=== PATIENT | female | born 1980 | race Caucasian/White ===

== ENCOUNTER 2018-08-05 11:39 | Outpatient (REF) | payer BC, SELFPAY ==
--- NOTE | 2018-08-05 09:00 | PAPFT_PTH ---
PATIENT: Flor Mccarthy LOC: [facility] U#:[id number] AGE/SX: 38/F ROOM: RE08/05/[address]: ALLI Gibson : 1980 BED: DIS: 08/05/2018 SPEC #: [id number] RECD: 08/06/18 12:55 STATUS: JIMBO SOSA #: [id number] DIAN: 08/05/18 09:[address]: Payal Mendenhall DEPT: [facility] Cytology RECD BY: Jessi Shaw Tissues: 1 - CX/ENDOCX FOR PAP SMEARS Procedures: PAP THIN PREP/UVM Screening HPV DNA PROBE Comments: [id number]
== END 2018-08-05 11:59 ==
LOC: LBN 11:39
PROVIDERS: PCP Nurse Practitioner Family; Visit Provider Nurse Practitioner Family
DX: Z12.4 Encounter for screening for malignant neoplasm of cervix (principal); Z11.51 Encounter for screening for human papillomavirus (HPV)
CPT/HCPCS: 88142; 87624

== ENCOUNTER 2018-08-08 00:38 | Outpatient (CLI) | payer BC, SELFPAY ==
--- NOTE | 2018-08-08 09:45 | DI.MAMMO_ITS ---
SYMPTOMS/DIAGNOSIS: SCREENING, Z12.31 MAMMOGRAMS: Mammograms were interpreted according to the usual protocol including computer analysis with CAD system, tomosynthesis and C view imaging. The breasts are of moderate density with fairly symmetrical distribution of fibroglandular tissue. No dominant mass or clumped microcalcification is identified in either breast. Current examination is a baseline examination. CONCLUSION: No specific evidence of malignancy at this time. Routine screening examinations are suggested at yearly intervals in this age group according to the ACS/ACR guidelines. Category 1, breast density category B. MQSA ASSESSMENT OF FINDINGS: Negative. Category 1. Patient will receive a letter notifying them of these results. BI-RADS category B. There are scattered areas of fibroglandular density.
== END 2018-08-08 00:58 ==
PROVIDERS: PCP Nurse Practitioner Family; Visit Provider Nurse Practitioner Family
DX: Z12.31 Encounter for screening mammogram for malignant neoplasm of breast (principal)
CPT/HCPCS: 77063; 77067

== ENCOUNTER 2018-08-08 07:53 | Outpatient (CLI) | payer BC, SELFPAY ==
[2018-08-08 09:55] LABS: Absolute Basophil Count 0.02 k/cumm (0.0-0.2); Absolute Eosinophil Count 0.11 k/cumm (0.0-0.7); Absolute Lymphocyte Count 1.43 k/cumm (1.2-3.4); Absolute Monocyte Count 0.34 k/cumm (0.11-0.7); Absolute Neutrophil Count 2.64 k/cumm (1.2-6.7); Basophils % 0.4; Eosinophils % 2.4; HCT 37.6 % (36.0-46.0); HGB 12.2 g/dL (12.0-15.5); Lymphocytes % 31.5; Mean Corp. HGB Concentration 32.4 g/dL (32.0-36.0); Mean Corpuscular Hemoglobin 29.1 pg (27.0-33.0); Mean Corpuscular Volume 89.7 fL (80-95); Mean Platelet Volume 9.9 fL (8.0-11.0); Monocytes % 7.5; Neutrophils % 58.2; Platelet Count 294 x1000/uL (130-400); RBC 4.19 m/cumm (4.00-5.20); RBC Distribution Width 14.2 % (11.7-14.6); White Blood Cell Count 4.54 k/cumm (4.4-10.8)
[2018-08-08 11:38] LABS: Anion Gap 8.6 mmol/L (3-11); BUN 12 mg/dL (7-18); CO2 27.4 mmol/L (21.0-32.0); CREATININE 0.85 mg/dL (0.55-1.02); Chloride 101 mmol/L (98-107); Glucose 90 mg/dL (70-100); Potassium 4.1 mmol/L (3.5-5.1); Sodium 137 mmol/L (136-145); TSH 2.78 uIU/mL (0.358-3.74)
[2018-08-08 12:03] LABS: Cholesterol 219 mg/dL (50-200); HDL Cholesterol 66 mg/dL (40-60); LDL CHOLESTEROL 133 mg/dL (<100); Triglyceride 55 mg/dL (30-150)
[2018-08-09 11:19] LABS: Thyroglobulin Antibody 101 U/mL (<61); Thyroperoxidase Antibody 55 U/mL (<61)
== END 2018-08-08 08:13 ==
PROVIDERS: PCP Nurse Practitioner Family; Visit Provider Nurse Practitioner Family
DX: E03.9 Hypothyroidism, unspecified (principal)
CPT/HCPCS: 36415; 80048; 80061; 83721; 86376; 84439; 84443; 85025

== ENCOUNTER 2019-06-12 08:31 | Emergency (ER) | payer BC, SELFPAY ==
[2019-06-12 08:35] VITALS: BP 114/75; PULSE 60; RESP 16; TEMP 36.8; O2SAT 100
--- NOTE | 2019-06-12 08:44 | W.ED.GENAD ---
Discharge Plan Disposition Patient Disposition: HOME Condition: Stable Discharge Details Chief Complaint: EyeProblem Clinical Impression: Hordeolum eyelid Primary Care Provider: Payal Mendenhall ED Provider: Jillian Rea Home Meds and New Rx's Prescriptions: New polymyxin B sulf-trimethoprim 10,000 unit- 1 mg/mL drops 1 drp OP Q3H 7 Days Qty: 10 RF: 0 Continued levothyroxine 75 mcg tablet 75 mcg PO DAILY Qty: 90 RF: 4 Discharge Instructions Instructions: Stye (ED) Additional Instructions: Follow up with primary care provider in 3-5 days. Return to ED sooner if any worsening or concerns. Increase oral fluids. Apply warm compresses. Please take Tylenol or Ibuprofen with food every 4-6 hours as needed for pain and swelling. Take medications as directed Follow-up in 3 to 5 days [facility] [address] [address] Medical Decision Making 39-year-old female presents with right eyelid problem. She reports 4 days ago noticed a red tender area to her right lower lid. Denies trauma. No periorbital swelling noted. She does have some erythema noted to that her outer right lower eyelid. On the inner eyelid there is a little white lesion approximately 1 mm in diameter. Some mild discharge. Patient reports waking up with her eyelid crusted shut. And some mild discharge noted. Her conjunctive and sclera are clear pupils are PERRLA EOMs are intact bilaterally. No face pain or ear pain noted. At this time it is important hordeolum versus chalazion. Prescription written for polymyxin trimethoprim eyedrops. Instructed to do 1 drop 4 times a day x7 days while awake. Instructed to follow-up with [facility] in 3 to 5 days if symptoms persist. Instructed to apply warm compresses and to return if any worsening, problems seen, fever or concerns. Patient verbalized understanding. HPI General Mode of arrival: ambulatory. Date/Time Provider Initiated Documentation: 06/12/19 08:39. Limitations to Documentation: no limitations. Information obtained by: patient. HPI Narrative: 39-year-old female presents with right eyelid complaint. She states that 4 days ago she began with a right lower lid stye which was tender. And she noted a white pustule noted to the inner lid. She does report some drainage and crusting. Denies new eye make-up or trauma to the eye. No visual disturbances. Pupils are PERRLA. Conjunctive is clear. Visual acuity is 20/20. Related Data Home Medications Medication Instructions Recorded Confirmed levothyroxine 75 mcg tablet 75 mcg PO DAILY #90 tab-cap 08/05/18 06/12/19 polymyxin B sulf-trimethoprim 1 drp OP Q3H 7 Days #10 ml 06/12/19 Previous Rx's Medication Instructions Recorded levothyroxine 75 mcg tablet 75 mcg PO DAILY #90 tab-cap 08/05/18 polymyxin B sulf-trimethoprim 1 drp OP Q3H 7 Days #10 ml 06/12/19 Allergies Allergy/AdvReac Type Severity Reaction Status Date / Time No Known Allergies Allergy Unverified 06/12/19 08:39 General Stated Complaint: EyeProblem KYRIE: 5 Review of Systems Narrative: Constitutional: Negative for weight loss, alert and oriented, well groomed, normal body habitus, appears comfortable. HEENT: Denies trauma, headaches, blurry vision, nasal discharge, sore throat, trouble swallowing. Chest: Denies chest pain, palpitations, irregular rhythm, hypertension. Respiratory: Denies Shortness of breath, cough, hemoptysis. GI: Denies abdominal pain, nausea, vomiting, diarrhea, constipation. : Denies dysuria, hematuria, flank pain, rectal bleeding. Neuro: Denies dizziness, blurry vision, weakness, syncope, headache or facial numbness. Hematologic: Denies easy bruising, intolerance to heat or cold, hair loss. Eyes Eyes: Reports eye pain (Right lower eyelid lesion to inner eyelid white) and Reports other (Erythema localized to right outer lower lid) [facility] Medical History Hyperlipidemia (Chronic ~07/2018) Hypothyroidism (Chronic 05/10/11) TMJ (temporomandibular joint syndrome) (Inactive) Followed by Dr. Borrego with [facility] Surgical History Tooth extraction wisdom teeth removal Family History Mother , at 64 of glioblastoma Essential hypertension Glioblastoma Hyperlipidemia Father Hyperlipidemia Brother No problems noted. Brother No problems noted. Son No problems noted. Daughter No problems noted. Daughter No problems noted. Maternal Grandfather , in his 80s Throat cancer Maternal Grandmother , in her 80s Stroke Hyperlipidemia Paternal Grandfather , In his 80s Skin cancer Paternal Grandmother , in her 80s No problems noted. Brother , 34/plane crash No problems noted. Social History Smoking/Tobacco Use Status: Never Alcohol Intake: current Alcohol Intake frequency: 0-2 drinks per day Alcohol type: beer, wine and hard liquor Drug use: Never Substance use type: does not use Caregiver/Support person: No Household members: spouse and children Housing: house Communication Needs: None Do you need help understanding health information?: Never Pets and animals: Yes Pets and animals: other Details: chickens Sexually active: Yes Do you think of yourself as: straight/heterosexual Current gender identity: female What is your relationship status?: How often do you talk on the phone with friends or family?: three or more times per week How often do you get together with friends or relatives?: three or more times per week How often do you attend oriental orthodox or islam services?: 1-3 times per year Do you belong to any clubs or organized social groups?: no Panel score (0-1 are the most socially isolated patients): 2 What type of physical activity do you participate in: walking and other Details: Skiing, elliptical, Duration: 45-60 minutes/day Frequency: 5-6 times per week Kelly/Rastafarian: None Special kelly needs: No Seatbelt use: always Drive intox or ride w/intox motor pool driver: No Do you feel safe at home: Yes Do you feel safe in your relationship?: Yes Female Reproductive History Menstrual control method: other ( had vasectomy) History History 3 Para Hx # Term Pregnancies Multiple births 1 Hx # Pregnancies Ectopic pregnancies AB induced Hx Number of Living Children 3 AB spontaneous 1 Exam Eyes Alignment and Position: alignment normal Eyelids: eyelid abnormality right lower eyelid inflamed cyst internal lid (Chalazion vs hordeolum), erythema and tenderness Conjunctivae: conjunctivae normal Sclera: sclerae normal Cornea: corneas normal Pupils: PERRL EOM: EOM intact bilaterally Direct ophthalmoscopy: normal light reflex Eyes/upper lids images: 1. Erythema 2. White rubbery lesion Course Vital Signs Vital signs: Vital Signs Temperature 36.8 C 06/12/19 08:35 Pulse 60 06/12/19 08:35 Respiratory Rate 16 06/12/19 08:35 Blood Pressure 114/75 06/12/19 08:35 Pulse Oximetry 100 06/12/19 08:35 Temperature 36.8 C 06/12/19 08:35 Temperature Source Temporal Artery Scan 06/12/19 08:35 Pulse 60 06/12/19 08:35 Respiratory Rate 16 06/12/19 08:35 Respiratory Effort Non-Labored 06/12/19 08:38 Blood Pressure 114/75 06/12/19 08:35 Blood Pressure Position Sitting 06/12/19 08:35 Pulse Oximetry 100 06/12/19 08:35 Oxygen Delivery Method Room Air 06/12/19 08:35 Oxygen Flow Rate 0 06/12/19 08:35 Pain Level 5 06/12/19 08:35
== END 2019-06-12 08:56 | disposition home or self-care (01) ==
PROVIDERS: Emergency Provider Registered Nurse Emergency; PCP Nurse Practitioner Family
DX: H00.012 Hordeolum externum right lower eyelid (principal)
CPT/HCPCS: 99283

== ENCOUNTER 2019-10-28 02:46 | Outpatient (CLI) | payer BC, SELFPAY ==
[2019-10-28 11:53] LABS: Anion Gap 6.9 mmol/L (3-11); BUN 16 mg/dL (7-18); CO2 27.1 mmol/L (21.0-32.0); CREATININE 0.96 mg/dL (0.55-1.02); Calcium 9.3 mg/dL (8.5-10.1); Chloride 101 mmol/L (98-107); FREE T4 1.02 ng/dL (0.76-1.46); Glucose 112 mg/dL (74-106); Potassium 4.4 mmol/L (3.5-5.1); Sodium 135 mmol/L (136-145)
== END 2019-10-28 03:06 ==
PROVIDERS: PCP Nurse Practitioner Family; Visit Provider Nurse Practitioner Family
DX: E03.9 Hypothyroidism, unspecified (principal)
CPT/HCPCS: 36415; 80048; 84439; 84443

== ENCOUNTER 2019-11-10 17:59 | Emergency (ER) | payer BC, SELFPAY ==
[2019-11-10 18:07] VITALS: BP 124/78; PULSE 69; RESP 18; TEMP 36.6; O2SAT 100
--- NOTE | 2019-11-10 18:15 | RT.EKG_ITS ---
APPROVED REPORT Exam: Resting ECG Patient Location: E HR:62 bpm ECG Measurements Heart Rate 62 AXIS NJ 151 P 40 QRSd 96 QRS 53 QT 403 T 52 QTc 410 <Conclusion> Sinus rhythm...normal P axis, V-rate 60- [address] elevation or depression.
--- NOTE | 2019-11-10 18:22 | W.ED.GENAD ---
Discharge Plan Disposition Patient Disposition: HOME Condition: Stable Discharge Details Chief Complaint: RespSymp Clinical Impression: Altered breathing pattern Primary Care Provider: Payal Mendenhall ED Provider: Alexa Hayes Home Meds and New Rx's Prescriptions: Continued levothyroxine 75 mcg tablet 75 mcg PO DAILY Qty: 90 RF: 4 Discharge Instructions Instructions: Dyspnea (ED), Breathing Techniques (ED) Additional Instructions: Drink plenty of fluids and get plenty of rest. Alternate tylenol and motrin as needed and directed for pain. Follow-up with your primary care doctor in 1 week for reevaluation and for possible outpatient MRI of your abdomen for further evaluation of the liver lesions noted incidentally on your CT. Return to the emergency department with any worsening or new concerning symptoms. Discharge Data Discharge Date/Time-TO BE ENTERED AT DEPARTURE: 11/10/19 20:50 Discharge Physician: Alexa Hayes Medical Decision Making <Alexa Hayes DO - Last Filed: 11/12/19 10:26> 1800 -- 39-year-old female with a history of hypothyroidism and hyperlipidemia presents with sensation of difficulty taking a deep breath for the past week. Had a brief period of right-sided chest pain and dizziness last week but this has since resolved. EKG notes a rate of 62, sinus with no acute ST ischemic changes. Patient is minimal tenderness to palpation of her right anterior chest. Differential diagnosis includes costochondritis, chest wall strain, PE, pneumonia, anxiety, etc. Will place an IV, bolus IV fluids, screening labs, CT chest to rule out PE. Urine test negative. 1999 --labs and imaging reviewed. Potassium 3.2. Troponin negative. CT chest notes liver lesions but no evidence of PE. Results discussed with patient. She was unaware of these noted liver lesions. She was advised to follow-up with her primary care doctor for reevaluation and for outpatient MRI abdomen for further evaluation. Patient feels good to go home. Usual and customary return precautions given prior to discharge.. Medical Records Medical records reviewed: Yes I reviewed the patient's medical records. Imaging Data Radiologic Study: Radiologist's impression: CT Angiography Chest With Contrast Exam date and time: 11/10/2019 7:00 PM Age: 39 years old Clinical indication: Shortness of breath; Patient HX: Difficulty taking a deep breath TECHNIQUE: Imaging protocol: Computed tomographic angiography of the chest with intravenous contrast. 3D rendering: MIP and/or 3D reconstructed images were created by the technologist. Radiation optimization: All CT scans at this facility use at least one of these dose optimization techniques: automated exposure control; mA and/or kV adjustment per patient size (includes targeted exams where dose is matched to clinical indication); or iterative reconstruction. Contrast material: OMNIPAQUE 350; Contrast volume: 100 ml; Contrast route: INTRAVENOUS (IV); COMPARISON: No relevant prior studies available. FINDINGS: Pulmonary arteries: Normal. No pulmonary emboli. Aorta: Unremarkable. No aortic aneurysm. No aortic dissection. Lungs: See Liver finding. Pleural space: Unremarkable. No pneumothorax. No pleural effusion. Heart: Unremarkable. No cardiomegaly. No pericardial effusion. Lymph nodes: Unremarkable. No enlarged lymph nodes. Liver: Left hepatic lobe lesion measures 5.5 cm of unclear etiology. Right hepatic lobe lesion measures 4 cm, etiology unclear. Similar lesion in the inferior right hepatic lob. e measures 5.1 cm. 4 mm nodule in the posterior segment of the left lower lobe (5/46). Consider contrast-enhanced dedicated MRI to the liver for further evaluation. Bones/joints: Unremarkable. No acute fracture. Soft tissues: Unremarkable. IMPRESSION: 1. No pulmonary embolism. 2. Right hepatic lobe lesion measures 4 cm, etiology unclear. Similar lesion in the inferior right hepatic lob. e measures 5.1 cm. 4 mm nodule in the posterior segment of the left lower lobe (5/46). Consider contrast-enhanced dedicated MRI to the liver for further evaluation. 3. Pulmonary nodule. For patients at low risk (minimal or absent history of smoking and of other known risk factors), no routine follow-up is indicated. Lab Data Lab results reviewed: Yes I reviewed the patient's lab results. Labs: Laboratory Tests Range/Units 11/10/19 11/10/19 11/10/19 19:20 19:20 19:20 WBC (4.4-10.8) k/cumm 6.07 RBC (4.00-5.20) m/cumm 4.26 Hgb (12.0-15.5) g/dL 12.9 Hct (36.0-46.0) % 38.3 MCV (80-95) fL 89.9 MCH (27.0-33.0) pg 30.3 MCHC (32.0-36.0) g/dL 33.7 RDW (11.7-14.6) % 14.0 Plt Count (130-400) x1000/uL 321 MPV (8.0-11.0) fL 10.0 Immature Gran % % 0.2 Neutrophils % 57.7 Lymphocytes % 31.1 Monocytes % 7.6 Eosinophils % 3.1 Basophils % 0.3 Absolute Neutrophils (1.2-6.7) k/cumm 3.50 Absolute Lymphocytes (1.2-3.4) k/cumm 1.89 Absolute Monocytes (0.11-0.7) k/cumm 0.46 Absolute Eosinophils (0.0-0.7) k/cumm 0.19 Absolute Basophils (0.0-0.2) k/cumm 0.02 PT (9.3-11.0) sec 10.3 INR (0.9-1.1) 1.0 APTT (21.0-31.4) sec 25.2 Sodium (136-145) mmol/L 138 Potassium (3.5-5.1) mmol/L 3.2 L Chloride (98-107) mmol/L 102 Carbon Dioxide (21.0-32.0) mmol/L 24.2 Anion Gap (3-11) mmol/L 11.8 H BUN (7-18) mg/dL 17 Creatinine (0.55-1.02) mg/dL 0.89 Estimated GFR/1.73 m2 (mL/min/1.73m2) >= 60.00 Glucose (74-106) mg/dL 77 Calcium (8.5-10.1) mg/dL 9.6 Magnesium (1.8-2.4) mg/dL 1.9 Total Bilirubin (0.2-1.0) mg/dL 0.7 AST (15-37) U/L 22 ALT (14-59) U/L 20 Alkaline Phosphatase (46-116) U/L 48 Troponin I (<0.06) ng/mL < 0.05 Total Protein (6.4-8.2) g/dL 8.1 Albumin (3.4-5.0) g/dL 4.1 ECG Data Attestation: I personally reviewed and interpreted this ECG (s) as follows: Interpretation: Rate of 62, sinus, no acute ST elevation or depression. AL 151. QRS 96. QTc 410. <Joel Medley, - Last Filed: 11/11/19 20:15> I did not participate in this patient's care, but secondary to signing error was placed on the chart. Please refer to Dr. Hayes's documentation. HPI <Alexa Hayes DO - Last Filed: 11/12/19 10:26> General Mode of arrival: ambulatory. Date/Time Provider Initiated Documentation: 11/10/19 18:02. Limitations to Documentation: no limitations. Information obtained by: patient. HPI Narrative: Patient is a 39-year-old female with a history of hypothyroidism, hyperlipidemia who presents for difficulty taking a deep breath for the past week. Patient states she was stung by 2 bees 1 week ago and ran away from them and since then she felt that she was having difficulty taking a deep breath. She denies any sensation of throat swelling or itching. She states the bee stings were minimal to her left pinky and neck and did not develop any rash, lesions, redness or swelling in the areas. She states last week she felt that she had pain when taking a deep breath but states this is since resolved. She states a few days ago she felt dizziness but not at present. She denies any fever, cough, nausea, vomiting or dizziness. Denies any recent travel, recent surgery, leg pain or swelling, oral contraceptives or known injury. Related Data Home Medications Medication Instructions Recorded Confirmed levothyroxine 75 mcg tablet 75 mcg PO DAILY #90 tab-cap 10/30/19 11/10/19 Previous Rx's Medication Instructions Recorded levothyroxine 75 mcg tablet 75 mcg PO DAILY #90 tab-cap 10/30/19 Allergies Allergy/AdvReac Type Severity Reaction Status Date / Time No Known Allergies Allergy Unverified 11/10/19 18:12 General Stated Complaint: RespSymp KYRIE: 3 Review of Systems <Alexa Hayes DO - Last Filed: 11/12/19 10:26> All systems reviewed & are unremarkable except as noted in HPI and below Constitutional Constitutional: Reports as per HPI, Denies chills and Denies fever(s) Eyes Eyes: Denies blurry vision ENT Ears, Nose, Mouth, and Throat: Denies dizziness, Denies sore throat and Denies throat swelling Cardiovascular Cardiovascular: Denies chest pain and Reports dyspnea Respiratory Respiratory: Denies cough and Reports dyspnea Gastrointestinal Gastrointestinal: Denies abdominal pain, Denies diarrhea and Denies vomiting Genitourinary Genitourinary: Denies hematuria and Denies dysuria Musculoskeletal Musculoskeletal: Denies back pain and Denies numbness Integumentary/Breasts Skin/Breast: Denies lesions and Denies rash Neurologic Neurologic: Denies dizziness, Denies localized weakness and Denies numbness Allergic/Immunologic Allergic/Immunologic: Denies throat swelling PFSH <Alexa Hayes DO - Last Filed: 11/12/19 10:26> Medical History (Updated 11/10/19 @ 20:24 by Alexa Hayes DO) Hyperlipidemia (Chronic) Hypothyroidism (Chronic) Insomnia (Chronic) TMJ (temporomandibular joint syndrome) (Inactive) Followed by Dr. Borrego with [facility] Surgical History (Updated 08/21/19 @ 09:15 by Payal Mendenhall NP) History of varicose vein stripping (Acute ~2004) Left leg in [place] Social History Smoking/Tobacco Use Status: Never Alcohol Intake: current Alcohol Intake frequency: 0-2 drinks per day Alcohol type: beer, wine and hard liquor Drug use: Never Substance use type: does not use Caregiver/Support person: No Household members: spouse and children Housing: house Communication Needs: None Do you need help understanding health information?: Never Pets and animals: Yes Pets and animals: other Details: chickens Sexually active: Yes Do you think of yourself as: straight/heterosexual Current gender identity: female What is your relationship status?: How often do you talk on the phone with friends or family?: three or more times per week How often do you get together with friends or relatives?: three or more times per week How often do you attend mormonism or nondenominational services?: 1-3 times per year Do you belong to any clubs or organized social groups?: no Panel score (0-1 are the most socially isolated patients): 2 What type of physical activity do you participate in: walking and other Details: Skiing, elliptical, Duration: 45-60 minutes/day Frequency: 5-6 times per week Kelly/Zoroastrianism: None Special kelly needs: No Seatbelt use: always Drive intox or ride w/intox seasonal delivery driver: No Do you feel safe at home: Yes Do you feel safe in your relationship?: Yes Female Reproductive History Menstrual control method: other ( had vasectomy) History History 3 Para Hx # Term Pregnancies Multiple births 1 Hx # Pregnancies Ectopic pregnancies AB induced Hx Number of Living Children 3 AB spontaneous 1 Exam <Alexa Hayes DO - Last Filed: 11/12/19 10:26> Const General: cooperative, healthy appearing and no acute distress HENMT Head: normal to inspection Face and sinus: normal facial exam Eyes General: appearance normal, both eyes and all related structures Pupils: PERRL EOM: EOM intact bilaterally Neck Neck: normal visual inspection and No submandibular swelling Lymphatic: no lymphadenopathy noted Chest Chest: normal inspection of the chest and tenderness Chest/axillae images: 1. Minimal tenderness to palpation right anterior chest Resp Effort & Inspection: normal respiratory effort and able to speak in complete sentences Auscultation: clear to auscultation bilaterally Cardio Rate: regular rate Rhythm: regular rhythm GI Inspection: normal to inspection Palpation: soft, not firm, not rigid and nontender Auscultation: normal bowel sounds Skin General skin exam: no rashes or lesions noted Neuro General: patient alert, patient awake and patient oriented x3 Cognition: normal cognition Speech: speech normal Motor: muscle tone normal throughout Sensory Exam: no sensory deficits noted Extrem General: normal to inspection, full ROM, capillary refill normal, no calf tenderness bilaterally and no edema Psych Appearance: grossly normal Mental Status: mental status grossly normal Speech and Movement: speech and movement normal Affect: normal affect Course <Alexa Hayes DO - Last Filed: 11/12/19 10:26> Vital Signs Vital signs: Vital Signs Temperature 97.9 F 11/10/19 18:07 Pulse 69 11/10/19 18:07 Respiratory Rate 18 11/10/19 18:07 Blood Pressure 124/78 11/10/19 18:07 Pulse Oximetry 100 11/10/19 18:07 Temperature 97.9 F 11/10/19 18:07 Pulse 69 11/10/19 18:07 Respiratory Rate 18 11/10/19 18:07 Respiratory Effort 11/10/19 18:12 Blood Pressure 124/78 11/10/19 18:07 Blood Pressure Position Sitting 11/10/19 18:07 Pulse Oximetry 100 11/10/19 18:07 Oxygen Delivery Method Room Air 11/10/19 18:07 Oxygen Flow Rate 0 11/10/19 18:07 Pain Level 4 11/10/19 18:07
--- NOTE | 2019-11-10 18:45 | DI.CT_ITS ---
EXAM: CT CHEST PE CTA CLINICAL HISTORY: Difficulty taking deep breath, r/o PE. TECHNIQUE: Imaging Protocol: Axial CT angiography was performed with multi-slice acquisition and mu lti-planar and/or 3D reconstructions. CONTRAST MATERIAL: Intravenous: Omnipaque 350 Contrast volume:structured data in ml COMPARISON: No exams were available for comparison FINDINGS: CT angiography of the chest was performed with intravenous infusion of 100 cc of Omnipaque 350. The lungs are clear. No pleural effusion. Tracheobronchial tree appears intact. No evidence of pulmonary embolic disease. Thoracic aorta is of normal, no thoracic aortic aneurysm or dissection, major branch vessels appear intact. No mediastinal or hilar adenopathy. Images obtained through the upper abdomen show at least 3 hepatic lesions which are of intermediate a ttenuation, the largest in the left lobe measuring up to 5-6 cm in diameter. Multiphasic hepatic CT recommended for further evaluation to distinguish neoplastic from benign causes. IMPRESSION: No evidence of pulmonary embolic disease. Multiple hepatic masses, no prior studies available for comparison. Comparison with prior outside st udies should be attempted, if no prior studies are available multiphasic hepatic CT would be recommen ded to evaluate malignant versus benign causes. RADIATION DOSE DELIVERED: Total DLP DATA REPOSITORY: All CT scans at this facility are submitted to the National Radiology Data Registry (NRDR) Dose Index Registry (DIR) with the [employer] (ACR). RADIATION OPTIMIZATION: All CT scans at this facility use at least one of these dose optimization te chniques: automated exposure control; mA and/or kV adjustment per patient size (includes targeted exa ms where dose is matched to clinical indication); or iterative reconstruction.
[2019-11-10] MEDS: Normal Saline 1,000 ML 1000 ML IV (19:20)
[2019-11-10 19:29] LABS: Abs Immature Grans 0.01 k/cumm (0.0-0.09); Absolute Basophil Count 0.02 k/cumm (0.0-0.2); Absolute Eosinophil Count 0.19 k/cumm (0.0-0.7); Absolute Lymphocyte Count 1.89 k/cumm (1.2-3.4); Absolute Monocyte Count 0.46 k/cumm (0.11-0.7); Basophils % 0.3; Eosinophils % 3.1; HCT 38.3 % (36.0-46.0); HGB 12.9 g/dL (12.0-15.5); Immature Grans % 0.2 %; Lymphocytes % 31.1; Mean Corp. HGB Concentration 33.7 g/dL (32.0-36.0); Mean Corpuscular Hemoglobin 30.3 pg (27.0-33.0); Mean Corpuscular Volume 89.9 fL (80-95); Monocytes % 7.6; Neutrophils % 57.7; Platelet Count 321 x1000/uL (130-400); RBC 4.26 m/cumm (4.00-5.20); White Blood Cell Count 6.07 k/cumm (4.4-10.8)
[2019-11-10] MEDS: Omnipaque 350 MG/ML 100 ML BTL IJ (19:36)
[2019-11-10 19:40] LABS: PTT Activated 25.2 sec (21.0-31.4); Prothrombin Time 10.3 sec (9.3-11.0)
[2019-11-10 19:43] LABS: ALT 20 U/L (14-59); AST 22 U/L (15-37); Albumin 4.1 g/dL (3.4-5.0); Alkaline Phosphatase 48 U/L (46-116); Anion Gap 11.8 mmol/L (3-11); BUN 17 mg/dL (7-18); Bilirubin, Total 0.7 mg/dL (0.2-1.0); CO2 24.2 mmol/L (21.0-32.0); CREATININE 0.89 mg/dL (0.55-1.02); Calcium 9.6 mg/dL (8.5-10.1); Chloride 102 mmol/L (98-107); Glucose 77 mg/dL (74-106); Magnesium 1.9 mg/dL (1.8-2.4); Potassium 3.2 mmol/L (3.5-5.1); Sodium 138 mmol/L (136-145); Total Protein 8.1 g/dL (6.4-8.2)
[2019-11-10 19:44] LABS: Troponin I < 0.05 ng/mL (<0.06)
[2019-11-10] MEDS: Normal Saline Flush 10 ML SYR IVP (20:02)
[2019-11-10] MEDS: Normal Saline - Diluent 50 ML VIAL IV (20:02)
--- NOTE | 2019-11-10 20:17 | DI.VRAD_ITS ---
PROCEDURE INFORMATION: Exam: CT Angiography Chest With Contrast Exam date and time: 11/10/2019 7:00 PM Age: 39 years old Clinical indication: Shortness of breath; Patient HX: Difficulty taking a deep breath TECHNIQUE: Imaging protocol: Computed tomographic angiography of the chest with intravenous contrast. 3D rendering: MIP and/or 3D reconstructed images were created by the technologist. Radiation optimization: All CT scans at this facility use at least one of these dose optimization techniques: automated exposure control; mA and/or kV adjustment per patient size (includes targeted exams where dose is matched to clinical indication); or iterative reconstruction. Contrast material: OMNIPAQUE 350; Contrast volume: 100 ml; Contrast route: INTRAVENOUS (IV); COMPARISON: No relevant prior studies available. FINDINGS: Pulmonary arteries: Normal. No pulmonary emboli. Aorta: Unremarkable. No aortic aneurysm. No aortic dissection. Lungs: See Liver finding. Pleural space: Unremarkable. No pneumothorax. No pleural effusion. Heart: Unremarkable. No cardiomegaly. No pericardial effusion. Lymph nodes: Unremarkable. No enlarged lymph nodes. Liver: Left hepatic lobe lesion measures 5.5 cm of unclear etiology. Right hepatic lobe lesion measures 4 cm, etiology unclear. Similar lesion in the inferior right hepatic lob. e measures 5.1 cm. 4 mm nodule in the posterior segment of the left lower lobe (5/46). Consider contrast-enhanced dedicated MRI to the liver for further evaluation. Bones/joints: Unremarkable. No acute fracture. Soft tissues: Unremarkable. IMPRESSION: 1. No pulmonary embolism. 2. Right hepatic lobe lesion measures 4 cm, etiology unclear. Similar lesion in the inferior right hepatic lob. e measures 5.1 cm. 4 mm nodule in the posterior segment of the left lower lobe (5/46). Consider contrast-enhanced dedicated MRI to the liver for further evaluation. 3. Pulmonary nodule. For patients at low risk (minimal or absent history of smoking and of other known risk factors), no routine follow-up is indicated. For patients at high risk (history of smoking or of other known risk factors), consider optional CT at 12 months. (Chloé et al., Fleischner Society, 2017) Dictated and Authenticated by: Asael Henry MD. Ordering:FE Liu MD
[2019-11-10 20:27] VITALS: BP 126/86; PULSE 66; RESP 16; O2SAT 100
[2019-11-10] MEDS: Potassium Chloride 20 MEQ TABCR 40 MEQ PO (20:31)
== END 2019-11-10 20:50 | disposition home or self-care (01) ==
PROVIDERS: Emergency Provider Physician Assistant; PCP Nurse Practitioner Family
DX: R06.89 Other abnormalities of breathing (principal); R79.89 Other specified abnormal findings of blood chemistry; R93.2 Abnormal findings on diagnostic imaging of liver and biliary tract
CPT/HCPCS: 71275; 80053; 81025; 93005; 96360; 99285; 83735; 84484; 85025; 85610; 85730; 93010; 99284; J3490

== ENCOUNTER 2019-11-27 01:51 | Outpatient (CLI) | payer BC, SELFPAY ==
[2019-11-27] MEDS: Omnipaque 350 MG/ML 100 ML BTL IJ (14:02)
--- NOTE | 2019-11-27 14:15 | DI.CT_ITS ---
EXAM: CT ABDOMEN WO/W CLINICAL HISTORY: LIVER MASSES,hepatomegaly,r16.0 TECHNIQUE: Axial acquisition was performed during arterial phase, venous phase, 5 minute delay as w ell as 15 minute delay from the lung bases through the aortic bifurcation. Sagittal and coronal maritza nstructions were performed. COMPARISON: CT CT CHEST PE CTA from 11/10/2019 FINDINGS: There is a low-density mass in the left lobe of the liver measuring 5.9 x 4.3 cm. There is a mass i n the superior right lobe measuring 3.7 x 2.6 cm. An additional lesion is seen inferiorly in the rig ht lobe, exophytic, which measures 3.6 x 5.1 cm. A smaller lesion measuring 10 millimeters is also se en. The lesions show progressive filling on delayed images. The findings likely represent hemangiom as. The spleen, pancreas, adrenals, kidneys and bowel are unremarkable. There is L5 spondylolysis a nd mild L5-S1 spondylolisthesis. IMPRESSION: Multiple liver lesions with enhancement characteristics favoring multiple large hemangiomas.
== END 2019-11-27 02:11 ==
PROVIDERS: PCP Nurse Practitioner Family; Visit Provider Nurse Practitioner Family
DX: R16.0 Hepatomegaly, not elsewhere classified (principal); M43.06 Spondylolysis, lumbar region; M43.17 Spondylolisthesis, lumbosacral region
CPT/HCPCS: 74170; J3490

== ENCOUNTER 2020-08-30 02:39 | Outpatient (CLI) | payer BC, SELFPAY ==
[2020-08-30 09:55] LABS: Anion Gap 10.1 mmol/L (3-11); BUN 9 mg/dL (7-18); CO2 24.9 mmol/L (21.0-32.0); CREATININE 0.9 mg/dL (0.55-1.02); Calcium 8.6 mg/dL (8.5-10.1); Calculated LDL 115 mg/dL (<100); Chloride 106 mmol/L (98-107); Cholesterol 201 mg/dL (<200); Glucose 91 mg/dL (74-106); HDL Cholesterol 73 mg/dL (40-60); Potassium 4.2 mmol/L (3.5-5.1); Sodium 141 mmol/L (136-145); TSH 4.05 uIU/mL (0.36-3.74); Triglyceride 65 mg/dL (<150)
[2020-08-30 10:17] LABS: FREE T4 0.92 ng/dL (0.76-1.46)
== END 2020-08-30 02:40 | disposition home or self-care (01) ==
LOC: LBO 02:39
PROVIDERS: PCP Nurse Practitioner Family; Visit Provider Nurse Practitioner Family
DX: E78.5 Hyperlipidemia, unspecified (principal); E03.9 Hypothyroidism, unspecified
CPT/HCPCS: 36415; 80048; 80061; 84439; 84443

== ENCOUNTER 2021-04-05 02:47 | Outpatient (CLI) | payer BC, SELFPAY ==
[2021-04-05 16:12] LABS: TSH 3.48 uIU/mL (0.36-3.74)
[2021-04-05 16:30] LABS: FREE T4 0.81 ng/dL (0.76-1.46)
== END 2021-04-05 02:48 | disposition home or self-care (01) ==
LOC: LBO 02:47
PROVIDERS: PCP Nurse Practitioner Family; Visit Provider Nurse Practitioner Family
DX: R63.5 Abnormal weight gain (principal)
CPT/HCPCS: 36415; 84439; 84443

== ENCOUNTER 2021-08-26 15:10 | Outpatient (REF) | payer BC, SELFPAY ==
--- NOTE | 2021-08-26 11:50 | PAPFT_PTH ---
PATIENT: Flor Mccarthy LOC: [facility] U#:[id number] AGE/SX: 41/F ROOM: RE08/26/[address]: Kaylie Crisostomo NP : 1980 BED: DIS: 08/26/2021 SPEC #: [id number] RECD: 08/29/21 12:55 STATUS: JIMBO SOSA #: [id number] DIAN: 08/26/21 11:[address]: Kaylie Crisostomo DEPT: [facility] Cytology RECD BY: Jessi Shaw ENTERED: 08/29/21 12:55 SP TYPE: PAPFT OTHR DR: Payal Mendenhall, TOP FRAME FITTER Tissues: 1 - CX/ENDOCX FOR PAP SMEARS Procedures: PAP THIN PREP/UVM Screening HPV DNA PROBE Comments: [id number]
== END 2021-08-26 15:11 | disposition home or self-care (01) ==
LOC: LBN 15:10
PROVIDERS: PCP Nurse Practitioner Family; Visit Provider Nurse Practitioner Family
DX: Z12.4 Encounter for screening for malignant neoplasm of cervix (principal); Z11.51 Encounter for screening for human papillomavirus (HPV)
CPT/HCPCS: 88142; 87624

== ENCOUNTER 2021-09-07 01:51 | Outpatient (CLI) | payer BC, SELFPAY ==
[2021-09-07 09:44] LABS: FREE T4 0.92 ng/dL (0.76-1.46)
[2021-09-07 09:49] LABS: Calculated LDL 127 mg/dL (<100); Cholesterol 215 mg/dL (<200); HDL Cholesterol 77 mg/dL (40-60); TSH 2.79 uIU/mL (0.36-3.74); Triglyceride 56 mg/dL (<150)
== END 2021-09-07 01:52 | disposition home or self-care (01) ==
LOC: LBO 01:52
PROVIDERS: PCP Nurse Practitioner Family; Visit Provider Nurse Practitioner Family
DX: Z00.00 Encounter for general adult medical examination without abnormal findings (principal); E03.9 Hypothyroidism, unspecified
CPT/HCPCS: 36415; 80061; 84439; 84443

== ENCOUNTER → 2022-01-31 00:53 | Outpatient (CLI) | payer BC, SELFPAY ==
--- NOTE | 2022-01-31 07:30 | DI.MAMMO_ITS ---
Exam(s) MAMMO SCREENING EXAM: MAMMO SCREENING CLINICAL HISTORY: screening,Z12.39. TECHNIQUE: Bilateral full field digital CC and MLO mammographic images were obtained with 3D tomosyn thesis and utilizing computer aided detection (CAD). COMPARISON: Prior baseline mammogram July 2018 was reviewed. FINDINGS: The fibroglandular tissue pattern is again noted be moderately dense. There is stable appearance of benign-appearing bilateral nodules, these have the appearance of probab le benign intramammary lymph nodes. There are no new ominous spiculated masses nor malignant appearing microcalcification groups. There is no significant architectural distortion nor skin thickening-retraction. IMPRESSION: No radiographic evidence of malignancy. Stable benign-appearing findings. BI-RADS Category 2 - Benign Findings Breast Density - Category C - Heterogeneously dense Breast density Category C or D implies that the patient has dense breast tissue. Dense breast tissue can make it harder to find cancer on a mammogram. Dense breast tissue is also associated with an incr eased risk of breast cancer. This information about the result of the mammogram report was provided to the patient to raise their awareness. Use this report when you speak with the patient about their risks for breast cancer, which includes their family history. At that time, you may recommend additional screening tests (Ultrasoun d or MRI) as these tests may add significant information. A negative radiographic report should not delay biopsy if a dominant or clinically suspicious mass is present. Up to ten percent of cancers are not identified on mammography. A negative report may reinforce clinical impression. Adenosis and dense breasts may obscure an underlying neoplasm. False positive reports average 6 to 10%. Patient will receive a letter notifying them of these results.
== END ==
PROVIDERS: PCP Nurse Practitioner Family; Visit Provider Nurse Practitioner Family
DX: Z12.31 Encounter for screening mammogram for malignant neoplasm of breast (principal); R92.8 Other abnormal and inconclusive findings on diagnostic imaging of breast
CPT/HCPCS: 77063; 77067

== ENCOUNTER 2022-03-09 15:31 | Emergency (ER) | payer BC, SELFPAY | END 2022-03-09 15:51 | disposition LWBS | LOC: ER 15:36 | PROVIDERS: PCP Nurse Practitioner Family | DX: Z53.21 Procedure and treatment not carried out due to patient leaving prior to being seen by health care provider (principal) ==

== ENCOUNTER 2022-06-21 02:47 | Outpatient (CLI) | payer BC, SELFPAY ==
[2022-06-21 12:48] LABS: Anion Gap 6.9 mmol/L (3-11); BUN 13 mg/dL (7-18); CO2 28.1 mmol/L (21.0-32.0); CREATININE 0.8 mg/dL (0.55-1.02); Chloride 103 mmol/L (98-107); Estimated GFR 93.12 (mL/min/1.73m2); Glucose 98 mg/dL (74-106); Potassium 3.8 mmol/L (3.5-5.1); Sodium 138 mmol/L (136-145); TSH (W/Ref FT4) 2.49 uIU/mL (0.36-3.74)
== END 2022-06-21 02:48 | disposition home or self-care (01) ==
LOC: LOS 02:47
PROVIDERS: PCP Nurse Practitioner Family; Visit Provider Nurse Practitioner Family
DX: E03.9 Hypothyroidism, unspecified (principal); E78.5 Hyperlipidemia, unspecified
CPT/HCPCS: 36415; 80048; 84443

== ENCOUNTER 2022-09-29 01:31 | Outpatient (CLI) | payer BC, SELFPAY ==
[2022-09-29 12:50] LABS: HCT 36.4 % (36.0-46.0); HGB 12.1 g/dL (11.2-15.7); MCH 30.8 pg (27.0-33.0); MCHC 33.2 % (32.0-36.0); MCV 93 fL (80-95); MPV 10.1 fL (8.0-11.0); Platelet Count 321 10^3/uL (130-400); RBC 3.93 10^6/uL (3.93-5.22); RDW 13.9 % (11.7-14.6); RDW-SD 47.9 fL; WBC 4.56 10^3/uL (4.4-10.8)
[2022-09-29 13:18] LABS: Ferritin 29 ng/mL (8-252)
== END 2022-09-29 01:32 | disposition home or self-care (01) ==
LOC: LOS 01:32
PROVIDERS: PCP Nurse Practitioner Family; Visit Provider Nurse Practitioner Family
DX: R53.83 Other fatigue (principal); K62.5 Hemorrhage of anus and rectum; E03.9 Hypothyroidism, unspecified
CPT/HCPCS: 36415; 85027; 82728

== ENCOUNTER 2023-08-31 05:16 | Outpatient (CLI) | payer BC, SELFPAY ==
[2023-08-31 12:25] LABS: Hemoglobin A1C 5.5 % (<5.7)
[2023-08-31 12:40] LABS: Anion Gap 10.5 mmol/L (3-11); BUN 10 mg/dL (7-18); CO2 25.5 mmol/L (21.0-32.0); Calcium 8.9 mg/dL (8.5-10.1); Calculated LDL 143 mg/dL (<100); Chloride 104 mmol/L (98-107); Cholesterol 226 mg/dL (<200); Glucose 97 mg/dL (74-106); HDL Cholesterol 72 mg/dL (40-60); Potassium 3.9 mmol/L (3.5-5.1); Sodium 140 mmol/L (136-145); TSH (W/Ref FT4) 3.12 uIU/mL (0.36-3.74); Triglyceride 55 mg/dL (<150)
[2023-08-31 19:10] LABS: Hepatitis C Ab w Rflx HCV PCR Negative (Negative)
== END 2023-08-31 05:17 | disposition home or self-care (01) ==
LOC: LOS 05:16
PROVIDERS: PCP Nurse Practitioner Family; Visit Provider Nurse Practitioner Family
DX: Z00.00 Encounter for general adult medical examination without abnormal findings (principal); E03.9 Hypothyroidism, unspecified
CPT/HCPCS: 36415; 80048; 80061; 86803; 83036; 84443

== ENCOUNTER → 2023-09-12 01:29 | Outpatient (CLI) | payer BC, SELFPAY ==
--- NOTE | 2023-09-12 08:45 | DI.MAMMO_ITS ---
Exam(s) MAMMO SCREENING EXAM: MAMMO SCREENING CLINICAL HISTORY: screening, Z12.39 TECHNIQUE: Bilateral full field digital CC and MLO mammographic images were obtained with 3D tomosyn thesis and utilizing computer aided detection (CAD). COMPARISON: Available for comparison. FINDINGS: Masses/Architectural Distortion: There are stable bilateral breast nodules. No new nodules. No area s of architectural distortion. Microcalcifications: No suspicious pleomorphic-type are seen. Skin Thickening/Nipple Retraction: None. IMPRESSION: 1. No significant interval change with no specific features of malignancy noted. 2. Unless there is more urgent need, screening mammography is recommended, as per [employer] guidelines. BI-RADS Category 2 - Benign Findings Breast Density - Category C - Heterogeneously dense Breast density category C or D implies that the patient has dense breast tissue. Dense breast tissue is very common and is not abnormal but dense breast tissue can make it harder to find cancer on a ma mmogram. Also, dense breast tissue may increase their breast cancer risk. This information about the result of the mammogram report was provided to the patient to raise their awareness. Use this report when you speak with the patient about their risks for breast cancer, which includes their family hist ory. At that time, you may recommend for more screening tests (Ultrasound or MRI) as they might be us eful based on their risk. A negative radiographic report should not delay biopsy if a dominant or clinically suspicious mass is present. Up to ten percent of cancers are not identified on mammography. A negative report may reinforce clinical impression. Adenosis and dense breasts may obscure an underlying neoplasm. False positive reports average 6 to 10%. Patient will receive a letter notifying them of these results.
== END ==
PROVIDERS: PCP Nurse Practitioner Family; Visit Provider Nurse Practitioner Family
DX: Z12.31 Encounter for screening mammogram for malignant neoplasm of breast (principal); R92.333 Mammographic heterogeneous density, bilateral breasts
CPT/HCPCS: 77063; 77067

== ENCOUNTER 2024-04-11 10:29 | Day surgery (SDC) | payer BC, SELFPAY ==
--- NOTE | 2024-04-10 14:33 | PDOC.DSDIS_ITS ---
Date of service: 04/11/24 Discharge Plan Disposition Patient Disposition: Home Condition: Good Discharge Details Reason For Visit: screening colonoscopy Attending Provider: Javad Shi Primary Care Provider: Payal Mendenhall Home Meds and New Rx's Prescriptions: Continued minoxidil 2.5 mg tablet 2.5 mg PO DAILY Patient Comments: TAKE 1/2 TABLET BY MOUTH DAILY cyclobenzaprine 5 mg tablet 5 - 10 mg PO TID PRN (Reason: muscle spasm) Qty: 60 0RF Rx Instructions: Take 1 tablet by mouth three times a day as needed for back pain ondansetron HCl 8 mg tablet 8 mg PO TID PRN (Reason: nausea and vomiting) Qty: 60 0RF levothyroxine 88 mcg tablet 88 mcg PO DAILY Qty: 90 3RF alprazolam [Xanax] 0.5 mg tablet 0.5 mg PO BID PRN (Reason: anxiety) Qty: 10 0RF Rx Instructions: May take 1 tab every 12 hours if feeling anxious during travel Discontinued bisacodyl [Dulcolax (bisacodyl)] 5 mg tablet,delayed release (DR/EC) 5 mg PO ONCE Qty: 4 0RF Rx Instructions: Take per colonoscopy instructions provided by ordering providers office polyethylene glycol 3350 17 gram/dose powder 17 g PO ONCE Qty: 238 0RF Rx Instructions: Take per colonoscopy instructions provided by ordering providers office Discharge Instructions Instructions: Colon polyps Additional Instructions: Hope, is very nice meeting you today, and I wish you a quick recovery from the colonoscopy. Your prep was excellent and I could see everything fine. I did find and remove 1 tiny polyp today. In fact, it might be a true polyp, but I took it out to be safe. This will be sent off for testing since polyps, different varieties, and we use that information to help guide the timing of your next colonoscopy. Removal of the polyp did cause a little bit of bleeding underneath of the mucosa or the lining of the colon, and I did use a little tiny metal clip to control this. Most patients will shed these clips in a week or 2 typically with her bowel movements. Most patients never noticed that, but I do let them know just in case you see something that looks out of the ordinary. The report on the polyp will take about a week or 2 before its available, but as soon as I have that information, my office will be in touch with recommendations for your next colonoscopy. If you need anything, or have any questions at all, please do not hesitate to ask. 1. If tolerated, consume a soft, low fiber diet for 1-2 days. 2[address] Do not drive, drink alcohol, operate machinery, make critical decisions, or do activities that require coordination or balance for 24 hours. 3. Because air was put into your colon during the procedure, expelling air from your rectum (passing gas or farting) is normal. 4. You may not have a bowel movement for 1-3 days because of the colonoscopy p rep. This is normal. 5. Go directly to the emergency room if you notice any of the following: Develop chills (warm to touch), or if you have a thermometer and your temperature is above 101 Difficulty breathing or difficultly swallowing Persistent vomiting Severe abdominal pain, other than gas cramps Severe chest pain Black, tarry stools Any bleeding ? exceeding one tablespoon 6. Call your physician if the site where your intravenous was started becomes red, swollen, painful, and warm to touch. 7. Your physician has reviewed your pre-procedure medications. Please continue to take those medications as previously ordered. You will be given specific information/education regarding any changes to your medications before leaving. Activity:: Activity as Tolerated Diet:: As Tolerated Discharge Orders Discharge Orders: Discharge Order (Routine); Ordered 04/10/24 Ordered By: Javad Shi DS: Diagnosis Discharge Diagnosis (1) Encounter for screening colonoscopy: Status: Acute Asessment and Plan: Follow-up polypectomy results
--- NOTE | 2024-04-10 14:34 | COLE_ITS ---
Date of service: 04/11/24 Time of Service: 13:02 Colonoscopy Report Date of procedure: 04/11/24 Pre-op diagnosis general: screening colonoscopy Post-op diagnosis procedure note: other (Colon polyp) Procedure: colonoscopy with polypectomy Surgeon: Javad Shi Anesthesia Type: General:No Airway Estimated blood loss (mL): 5 Pathology: other (0.25 cm polyp at 55 cm) Complications: None Disposition: same day Indications: Flor is a 44 year old woman who needs a screening colonoscopy Prep: Miralax/Dulcolax Procedure Start Time: 12:23 Procedure End Time: 12:51 Retraction Time: 11 Findings: 0.25 cm flat polyp at 55 cm Procedure Description: After the induction of anesthesia, and with the patient in left lateral decubitus position, I began by performing an external anorectal exam.? Perineum and skin were normal, as was the anal verge.? There was no evidence of external hemorrhoids.? Next, I performed a digital rectal exam.? This felt normal.? Next, I advanced a colonoscope into the rectal vault.? I performed retroflexion.? This appeared normal.? Using insufflation, I then advanced the colonoscope beyond the rectal folds and into the sigmoid colon before advancing towards the cecum.? The quality of the prep was excellent.? The scope was noted to be in the cecum by identification of the ileocecal valve and appendiceal orifice.? I then began withdrawing the colonoscope using repeated irrigation as necessary for full e valuation of the colonic mucosa. Around 55 cm from the anal verge was a 0.25 cm flat polyp. This was removed with cold forceps. There was a small amount of submucosal bleeding raising a small hematoma. A resolution 360 clip was used to control this. He was observed over several minutes, and there was no more expansion or any active bleeding. I continued withdrawing the colonoscope once the scope was withdrawn to the level of the rectum, great care was taken to examine portions of the rectal folds.? Finally, the scope was withdrawn and the patient was brought to the same-day surgery recovery unit as the anesthetic wore off. ?The findings and instructions were shared with the patient prior to discharge. [place] Bowel Prep [place] Bowel Prep Right Colon: 3 Left Colon: 3 Transverse Colon: 3 Total Score: 9
[2024-04-11 10:38] VITALS: BP 120/73; PULSE 69; RESP 16; TEMP 36.6; O2SAT 100
[2024-04-11] MEDS: Normal Saline Flush 10 ML SYR IV (11:01)
--- NOTE | 2024-04-11 12:03 | ANES.PREOP_ITS ---
General Info Date of Service Date Performed: 04/11/24 Height: 6 ft Weight: 83.3 kg Body Mass Index (BMI): 24.9 Surgical Procedure: Operation Date: 04/11/24 11:20 Proposed Procedure Side Surgeon p Colonoscopy Javad Shi MD Meds Allergies and Home Medications Allergies Allergy/AdvReac Type Severity Reaction Status Date / Time No Known Allergies Allergy Verified 04/11/24 10:48 Home Medication ?Medication ?Instructions ?Recorded ondansetron HCl 8 mg tablet 8 mg PO TID PRN nausea and 08/30/23 vomiting #60 tabs levothyroxine 88 mcg tablet 88 mcg PO DAILY #90 tabs 09/03/23 alprazolam 0.5 mg tablet (Xanax) 0.5 mg PO BID PRN anxiety #10 tabs 09/06/23 cyclobenzaprine 5 mg tablet 5 - 10 mg (1 - 2 x 5 mg) PO TID 12/03/23 PRN muscle spasm #60 tabs minoxidil 2.5 mg tablet 2.5 mg PO DAILY 12/03/23 Current Visit Medications: Current Medications Generic Name Dose Route Start Last Admin Trade Name Freq PRN Reason Stop Dose Admin IV Miscellaneous Supplies 1 each 04/11/24 06:00 Iv Access IV 04/11/24 23:59 DIRECTED [facility] Ondansetron HCl 4 mg 04/10/24 14:35 Ondansetron 4 Mg/2 Ml Vial IVP 05/10/24 14:34 Q4H PRN PRN Nausea / Vomiting Sodium Chloride 0 ml 04/11/24 06:00 04/11/24 11:01 Normal Saline Flush 10 Ml Syr IV 04/11/24 23:59 10 ml PRN PRN Administration Sodium Chloride 0 ml 04/11/24 06:00 Normal Saline 10 Ml Vial IJ 04/11/24 23:59 DIRECTED PRN Sterile Water 0 ml 04/11/24 06:00 Water,Injection,Sterile 10 Ml Vial IJ 04/11/24 23:59 DIRECTED PRN PFSH Active Problems Active Problems: Problem Status Onset Code Encounter for screening colonoscopy Acute Z12.11 Hypothyroidism Chronic E03.9 Hyperlipidemia Chronic E78.5 Menorrhagia with regular cycle Chronic N92.0 IUD surveillance Chronic Z30.431 Insomnia Chronic G47.00 TMJ (temporomandibular joint syndrome) Chronic M26.609 Medical History Medical History Superficial phlebitis and thrombophlebitis of right lower extremity (~04/2023) Hepatic hemangioma Surgical History Surgical History (Updated 04/11/24 @ 10:50 by Margareth Moses, RN) Hx of wisdom tooth extraction History of varicose vein stripping (~2004) Left leg in [place] Tobacco Smoking/Tobacco Use Status: Never Passive smoking exposure: No Second hand exposure: No Alcohol Alcohol Intake: current Alcohol intake frequency: 0-2 drinks per day Alcohol type: wine and hard liquor Substance Use Substance use: Never Substance use type: does not use Prental History History 3 Para 3 Hx # Term Pregnancies 2 Multiple births 1 Hx # Pregnancies Ectopic pregnancies AB induced Hx Number of Living Children 3 AB spontaneous 1 Past Pregnancies Del. Date GA/Weeks # Preg Succ Route Wgt Sex Labor Lgth Anesth esia Location [facility] 10/13/08 40 No vaginal 3827.186 g Male [facility] 06/21/10 39 Yes vaginal 2636.506 g Female [facility] Delivery Date: 10/13/08 Last Updated by: Bebe Vargas Brad Delivery Date: 06/21/10 Last Updated by: Bebe Vargas Krissy 5lbs 13 oz and Eneida 6 lbs 11 oz-both females. Vital Signs and Lab Results Vital Signs Most Recent Vital Signs in EMR: Most Recent Vital Signs Temp Pulse Resp BP Pulse Ox 36.6 C 69 16 120/73 100 04/11/24 10:38 04/11/24 10:38 04/11/24 10:38 04/11/24 10:38 04/11/24 10:38 Lab Results Blood Type / Crossmatch: No Data to Display Complete Blood Count: No Data to Display Complete Metabolic Panel: No Data to Display Liver Function Panel: No Data to Display Coagulation Panel: No Data to Display Cardiac Panel: No Data to Display Arterial Blood Gas: No Data to Display Venous Blood Gas: No Data to Display Pancreas Panel: No Data to Display Thyroid Panel: No Data to Display Infectious Disease: No Data to Display Blood Cultures: No Data to Display Toxicology Panel: No Data to Display Panel: No Data to Display Anesthesia Assessment and Plan Anesthesia History Personal History: No History of General Anesthesia Family History: No Family History of Anesthesia Complications Exercise Tolerance Exercise Tolerance: Metabolic Equivalents<4 Pertinent Negatives Pertinent Negatives: No Symptoms of GERD Cardiac & Pulmonary Exam Cardiac Exam: Normal S1/S2 Heart Sounds Pulmonary Exam: Clear Bilateral Breath Sounds Implantable Cardiac Device Does patient have a Pacemaker or an ICD?: No Airway Exam Known Difficult Airway: No Mallampati Class: 2 Mouth Opening: Normal (> 3cm) Thyromental Distance: Greater than 3 cm Neck Range of Motion: Full ROM Neck Circumference: Normal Teeth Condition: Normal Dentition ASA Classification ASA Score: ASA 1 Emergency Case?: No NPO Status NPO Status: NPO Clears >2 hours, Solids >8 hours Status Status: Negative HCG Anesthesia Plan Resuscitation Status: Full Code Anesthesia Technique: General Anesthesia Airway Planned: Natural Airway Monitors Used: Standard Monitors
[2024-04-11 12:16] VITALS: BMI 24.9
[2024-04-11 12:27] VITALS: BP 128/81; PULSE 65; RESP 16; TEMP 36.4; O2SAT 100
--- NOTE | 2024-04-11 12:46 | BOWEL_PTH ---
PATIENT: Flor Mccarthy LOC: [facility] U#:[id number] AGE/SX: 44/F ROOM: RE04/11/[address]: Javad Shi MD : 1980 BED: DIS: 04/11/2024 SPEC #: [id number] RECD: 04/11/24 16:02 STATUS: JIMBO REMary #: [id number] DIAN: 04/11/24 12:[address]: Javad Shi DEPT: Surgical Specimen RECD BY: Jessi Shaw ENTERED: 04/11/24 16:04 SP TYPE: Bowel OTHR DR: ALLI Gibson Tissues: 1 - BIOPSY BOWEL Procedures: GROSS AND MICRO LEVEL 4 Comments: [id number]
[2024-04-11 12:57] VITALS: BP 104/53; PULSE 74; RESP 16; TEMP 36.8; O2SAT 100
--- NOTE | 2024-04-11 13:06 | W.ANESPOSTOP ---
Postoperative Evaluation Date, Time and Location Date Performed: 04/11/24 Time Performed: 13:06 Patient Location: Day Surgery Unit Vital Signs Most Recent Imported Vital Signs: Most Recent Vital Signs Temp Pulse Resp BP Pulse Ox 36.6 C 69 16 120/73 100 04/11/24 10:38 04/11/24 10:38 04/11/24 10:38 04/11/24 10:38 04/11/24 10:38 Pain Score Most Recent Pain Score: Most Recent Pain Score Pain Level 0 04/11/24 10:38 Assessment Mental Status: Awake (Alert & Oriented to Patient Baseline) Airway and Respiratory Function: Patent airway with normal (patient baseline) respiratory exam Cardiovascular Function: Hemodynamically Stable Hydration Status: Adequately Hydrated Nausea & Vomiting: No Nausea or Vomiting Pain: Pt. Denies Any Pain Peripheral Nerve Block: Patient did not receive a nerve block
== END 2024-04-11 13:29 | disposition home or self-care (01) ==
LOC: SUR 10:29
PROVIDERS: PCP Nurse Practitioner Family; Visit Provider Surgery
PROC: 0DJD8ZZ Inspection of Lower Intestinal Tract, Via Natural or Artificial Opening Endoscopic (ICD-10-PCS; CPT 45378; principal; 2024-04-11 11:15)
DX: Z12.11 Encounter for screening for malignant neoplasm of colon (principal); K63.5 Polyp of colon
CPT/HCPCS: 45380; 81025; 88305; J2704

== ENCOUNTER 2024-09-17 02:53 | Outpatient (CLI) | payer OTHER, SELFPAY ==
[2024-09-17 12:41] LABS: ALT 17 U/L (14-59); AST 19 U/L (15-37); Albumin 3.7 g/dL (3.4-5.0); Alkaline Phosphatase 54 U/L (46-116); Anion Gap 6.7 mmol/L (3-11); BUN 11 mg/dL (7-18); Bilirubin, Total 0.9 mg/dL (0.2-1.0); CO2 27.3 mmol/L (21.0-32.0); CREATININE 0.9 mg/dL (0.55-1.02); Calcium 9.1 mg/dL (8.5-10.1); Calculated LDL 130 mg/dL (<100); Chloride 104 mmol/L (98-107); Cholesterol 206 mg/dL (<200); Estimated GFR 79.85 (mL/min/1.73m2); Glucose 85 mg/dL (74-106); HDL Cholesterol 66 mg/dL (>or=50); Potassium 3.6 mmol/L (3.5-5.1); Sodium 138 mmol/L (136-145); TSH (W/Ref FT4) 3.83 uIU/mL (0.36-3.74); Total Protein 7.7 g/dL (6.4-8.2); Triglyceride 50 mg/dL (<150)
[2024-09-17 12:59] LABS: FREE T4 0.82 ng/dL (0.76-1.46)
== END 2024-09-17 02:54 | disposition home or self-care (01) ==
LOC: LOS 02:54
PROVIDERS: PCP Nurse Practitioner Family; Visit Provider Nurse Practitioner Family
DX: Z00.00 Encounter for general adult medical examination without abnormal findings (principal); E78.5 Hyperlipidemia, unspecified; E03.9 Hypothyroidism, unspecified; G47.00 Insomnia, unspecified
CPT/HCPCS: 36415; 80053; 80061; 84439; 84443

== ENCOUNTER 2024-10-07 00:38 | Outpatient (CLI) | payer OTHER, SELFPAY ==
--- NOTE | 2024-10-07 07:30 | DI.MAMMO_ITS ---
Exam(s) MAMMO SCREENING EXAM: MAMMO SCREENING CLINICAL HISTORY: screening,Z12.39. TECHNIQUE: Bilateral full field digital CC and MLO mammographic images were obtained with 3D tomosyn thesis and utilizing computer aided detection (CAD). COMPARISON: Prior mammograms were reviewed. FINDINGS: There has been no significant change in the appearance and distribution of the fibroglandular tissue. Benign-appearing nodules bilaterally having the appearance of benign intramammary lymph nodes are unc hanged from prior mammograms. There are no new spiculated masses nor new malignant appearing microcalcification groups. There is no significant architectural distortion nor skin thickening-retraction. IMPRESSION: No radiographic evidence of malignancy. BI-RADS Category 2 - Benign Findings Breast Density - Category C - The breast are heterogeneously dense, which may obscure small masses. Breast density Category C or D implies that the patient has dense breast tissue. Dense breast tissue can make it harder to find cancer on a mammogram. Dense breast tissue is also associated with an incr eased risk of breast cancer. This information about the result of the mammogram report was provided to the patient to raise their awareness. Use this report when you speak with the patient about their risks for breast cancer, which includes their family history. At that time, you may recommend additional screening tests (Ultrasoun d or MRI) as these tests may add significant information. A negative radiographic report should not delay biopsy if a dominant or clinically suspicious mass is present. Up to ten percent of cancers are not identified on mammography. A negative report may reinforce clinical impression. Adenosis and dense breasts may obscure an underlying neoplasm. False positive reports average 6 to 10%. Patient will receive a letter notifying them of these results.
== END 2024-10-07 00:58 ==
LOC: DI 00:38
PROVIDERS: PCP Nurse Practitioner Family; Visit Provider Nurse Practitioner Family
DX: Z12.31 Encounter for screening mammogram for malignant neoplasm of breast (principal); R92.333 Mammographic heterogeneous density, bilateral breasts
CPT/HCPCS: 77063; 77067